=== PATIENT | female | born 1985 | race Asian ===

== ENCOUNTER 2016-10-19 08:17 | Inpatient (IN) | payer OTHER ==
--- NOTE | 2016-10-19 09:01 | OBPROG ---
OBG Progress Note Assessment/Plan: Assessment: cat1 fhr pain well managed irregular contractions intermittant monitoring low risk iv access labs assessement cephalic came in because worried about the bleeding would like to labor here Plan:expectant management of labor 10/19/16 08:58 Subjective: + bloody show. States rom at 0600 several episodes of leaking. Deferred amnisure bleeding noted. Coping well. - SVE Dilation (cm): 3 Effacement (%): 90 Station: 0 FHR Pattern Variability: Moderate FHR Category: 1 Membranes: SROM Amniotic Fluid Color: Blood Tinged - Physical Exam General Appearance: WD/WN, alert, no apparent distress Estimated Weight: [id number] EENT: PERRL/EOMI, normal ENT inspection Neck: non-tender, full range of motion Respiratory: chest non-tender, lungs clear, normal breath sounds Cardiac/Chest: regular rate, rhythm Abdomen: normal bowel sounds, flatus (positive passing) Extremities: normal range of motion, Sofia's sign (ngative bilaterally) DTR- Lower Extremities: Knee (R): 1+, Knee (L): 1+ (no clonus) Back: Normal inspection Skin: normal color, warm/dry Neuro/Psych: no motor/sensory deficits, alert, normal mood/affect, oriented x 3 ICD10 Worksheet Patient Problems: Problems Problem Status Onset Premature rupture of membranes (PROM), onset of labor within 24 hours, antepartum, full term Acute term labor rom Acute - ICD10 Problem Qualifiers (2) Premature rupture of membranes (PROM), onset of labor within 24 hours, antepartum, full term
[2016-10-19] MEDS ORDERED: IBUPROFEN 600 MG TAB PO PRN (09:03)
[2016-10-19] MEDS ORDERED: OLIVE OIL 118 ML BTL MISC PRN (09:03)
[2016-10-19] MEDS ORDERED: TERBUTALINE SULFATE 1 MG/ML VIAL IV PRN (09:03)
[2016-10-19] MEDS ORDERED: OXYTOCIN/RINGERS LACTATE 1,000 ML IV PRN (09:03)
[2016-10-19] MEDS ORDERED: EPSOM SALT 454 GM TP PRN (09:03)
[2016-10-19] MEDS ORDERED: LR 1,000 ML IV PRN (09:03)
[2016-10-19] MEDS ORDERED: LIDOCAINE 1% 30 ML SDV SC PRN (09:03)
[2016-10-19] MEDS ORDERED: LIDOCAINE 1% 30 ML SDV ONE (10:03)
[2016-10-19] MEDS ORDERED: AMMONIA AROMATIC 1 EACH AMP IH ONE (10:03)
[2016-10-19] MEDS ORDERED: OLIVE OIL 118 ML BTL ONE (10:03)
[2016-10-19] MEDS ORDERED: OXYTOCIN 10 UNIT/ML VIAL ONE (10:04)
[2016-10-19] MEDS ORDERED: MISOPROSTOL 200 MCG TAB ONE (10:04)
[2016-10-19] MEDS ORDERED: TERBUTALINE SULFATE 1 MG/ML VIAL ONE (10:04)
[2016-10-19 10:06] LABS: % IMMATURE GRANULYOCYTES 1.9 % (0.0-1.1); ABSOLUTE IMMATURE GRANULOCYTES 0.15 10^3/uL (0.00-0.10); ADD DIFF? NO; ADD MORPH? NO; ADD SCAN? NO; ATYPICAL LYMPHOCYTE FLAG 0 (0-99); FRAGMENT RBC FLAG 0 (0-99); HEMATOCRIT 38.6 % (38.0-47.0); HEMOGLOBIN 13.3 g/dL (12.6-16.3); LEFT SHIFT FLG 20 (0-99); LIPEMIA HEMOLYSIS FLAG 90 (0-99); MEAN CELL HEMOGLOBIN 31.9 pg (27.9-34.1); MEAN CELL HEMOGLOBIN CONCENTR. 34.5 g/dL (32.4-36.7); MEAN CELL VOLUME 92.6 fL (81.5-99.8); MEAN PLATELET VOLUME 13.1 fL (8.7-11.7); PLATELET CLUMPS FLAG 0 (0-99); PLATELET COUNT 114 10^3/uL (150-400); RED BLOOD CELL COUNT 4.17 10^6/uL (4.18-5.33)
--- NOTE | 2016-10-19 12:29 | OBPROG ---
OBG Progress Note Assessment/Plan: Assessment: intermittant monitoring 135 pain well managed irregular contractions 3/90/0 cephalic no reevaluation of cervix will wait for pain relief or greater pain to reduce the chance of infection 6h since rupture Plan:expectant management of labor 10/19/16 08:58 10/19/16 12:27 Subjective: Doing well. Pain from 3.5 to 5 breathing through the contractions. Asking about pain medications. would like to get into the tub to assist with pain relief Objective: 10/19/16 10:00 Patient ABO/Rh B POSITIVE 10/19/16 10:00 Current Contraction Pattern: Irregular FHR (bpm): 135 FHR Pattern Variability: Moderate Membranes: SROM Amniotic Fluid Color: Blood Tinged - Physical Exam Estimated Weight: [id number] ICD10 Worksheet Patient Problems: Problems Problem Status Onset Premature rupture of membranes (PROM), onset of labor within 24 hours, antepartum, full term Acute term labor rom Acute - ICD10 Problem Qualifiers (2) Premature rupture of membranes (PROM), onset of labor within 24 hours, antepartum, full term
[2016-10-19] MEDS ORDERED: fentaNYL 2MCG/ML/BUP 0.1% RTU 100 ML BAG EP ONE (14:38)
[2016-10-19] MEDS ORDERED: PHENYLEPHRINE HCL 100 MCG/ML SYR ONE (14:38)
[2016-10-19] MEDS ORDERED: BUPIVACAINE 0.25% 30 ML SDV ONE (14:38)
[2016-10-19] MEDS ORDERED: fentaNYL 100 MCG/2 ML INJ ONE ×2 (14:39→14:48)
[2016-10-19] MEDS ORDERED: PHENYLEPHRINE HCL 100 MCG/ML SYR IVP PRN (16:38)
[2016-10-19] MEDS ORDERED: ONDANSETRON 4 MG/2 ML VIAL IVP PRN (16:38)
--- NOTE | 2016-10-19 16:40 | POSTANESTH ---
Post Anesthetic Evaluation Cardiovascular Status: Normal, Stable Respiratory Status: Normal, Stable, Similar to Pre-op Cond. Level of Consciousness/Mental Status: Can Participate in Eval, Alert and Oriented (Tolerated CSE well, stable, comfortable.) Pain Control: Adequate, Prn Tx Ordered Nausea/Vomiting Control: Adequate, Prn Tx Ordered Complications Possibly Related to Anesthesia: None Noted
--- NOTE | 2016-10-19 16:43 | PREANESOB ---
Obstetric Pre-Anesthesia Info - General Info Proposed Procedure: Labor and delivery. : 1 Para: 0 WBD: 38 - Info Status: Full Term Monitors: External FHR Baseline (bpm): 135 FHR Pattern: Reassuring - Labor Status Cervical Dilation per last OB SVE: 3 Station per last OB SVE: 0 Amniotic Fluid Color: Blood Tinged Indications for Labor Analgesia: Pain Control Labor Epidural: Proposed Anesthesia ROS: Negative. Allergies/Adverse Reactions: Allergy/AdvReac Type Severity Reaction Status Date / Time No Known Allergies Allergy Unverified 10/19/16 09:02 Visit Medications: Generic Name Dose Route Start Last Admin Trade Name Freq PRN Reason Stop Dose Admin Diphenhydramine HCl 25 - 50 mg 10/19/16 16:38 Benadryl Injection IVP 04/17/17 16:37 Q6HRS PRN Itching Lactated Ringer's 1,000 mls @ 0 mls/hr 10/19/16 09:03 Lr IV 04/17/17 09:02 PRN PRN SEE PROTOCOL CONDITIONS Protocol Per Protocol Oxytocin/Lactated Ringer's 1,000 mls @ 150 mls/hr 10/19/16 09:03 Pitocin 20 Units/Lr (Premix) IV PRN PRN Post- bleeding Fentanyl/Bupivacaine HCl 100 mls @ 0 mls/hr 10/19/16 17:00 Fentanyl/Bupivacaine/Ns 2 Mcg/Ml 0.1% (Premix EP 10/29/16 16:59 CONT BEVERLEY Protocol As Directed Lactated Ringer's 500 mls @ 0 mls/hr 10/19/16 17:00 Lr IV 04/17/17 16:59 CONT BEVERLEY As Directed Ibuprofen 600 mg 10/19/16 09:03 Motrin PO 04/17/17 09:02 Q6HRS PRN post , inflammation Lidocaine HCl 30 ml 10/19/16 09:03 Lidocaine Hcl 1% SC 04/17/17 09:02 ONCE PRN Episiotomy Magnesium Sulfate 454 gm 10/19/16 09:03 Epsom Salt TP 04/17/17 09:02 PRN PRN perineal discomfort [place] Oil 118 ml 10/19/16 09:03 Sweet Oil MISC 04/17/17 09:02 ONCE PRN preneal massage Ondansetron HCl 4 mg 10/19/16 16:38 Zofran IVP 04/17/17 16:37 Q4HRS PRN Nausea/Vomiting, Can't Take PO Phenylephrine HCl 100 mcg 10/19/16 16:38 Naren-Synephrine IVP 04/17/17 16:37 .Q2M PRN Hypotension Terbutaline Sulfate 0.25 mg 10/19/16 09:03 Brethine IV 04/17/17 09:02 ONCE PRN Tachysystole Discontinued Medications Generic Name Dose Route Start Last Admin Trade Name Fregabi PRN Reason Stop Dose Admin Ammonia (Aromatic Spirit) Confirm 10/19/16 10:03 Ammonia Aromatic Administered 10/19/16 10:04 Dose 1 each IH .STK-MED ONE Bupivacaine HCl Confirm 10/19/16 14:38 Sensorcaine 0.25% Sdv Administered 10/19/16 14:39 Dose 30 ml .ROUTE .STK-MED ONE Ephedrine Sulfate Confirm 10/19/16 10:04 Ephedrine Sulfate Administered 10/19/16 10:05 Dose 50 mg .ROUTE .STK-MED ONE Fentanyl Confirm 10/19/16 14:39 Sublimaze Administered 10/19/16 14:40 Dose 100 mcg .ROUTE .STK-MED ONE Fentanyl Confirm 10/19/16 14:48 Sublimaze Administered 10/19/16 14:49 Dose 100 mcg .ROUTE .STK-MED ONE Fentanyl/Bupivacaine HCl Confirm 10/19/16 14:38 Fentanyl/Bupivacaine/Ns 2 Mcg/Ml 0.1% (Premix Administered 10/19/16 14:39 Dose 100 ml EP .STK-MED ONE Lidocaine HCl Confirm 10/19/16 10:03 Lidocaine Hcl 1% Administered 10/19/16 10:04 Dose 30 ml .ROUTE .STK-MED ONE Misoprostol Confirm 10/19/16 10:04 Cytotec Administered 10/19/16 10:05 Dose 800 mcg .ROUTE .STK-MED ONE [place] Oil Confirm 10/19/16 10:03 Sweet Oil Administered 10/19/16 10:04 Dose 118 ml .ROUTE .STK-MED ONE Oxytocin Confirm 10/19/16 10:04 Pitocin Administered 10/19/16 10:05 Dose 40 unit .ROUTE .STK-MED ONE Phenylephrine HCl Confirm 10/19/16 14:38 Naren-Synephrine Administered 10/19/16 14:39 Dose 1,000 mcg .ROUTE .STK-MED ONE Terbutaline Sulfate Confirm 10/19/16 10:04 Brethine Administered 10/19/16 10:05 Dose 1 mg .ROUTE .STK-MED ONE - Anesthesia History Response to Local Anesthetics: Normal - Social History Substance Use/Abuse: Denies - Focused Exam Blood Pressure: 97/54 Heart Rate: 75 Height/Weight (Nursing): Height 165.1 cm Weight 63.049 kg Physical Exam: Within normal limits. ASA Status: II Labs: 10/19/16 10:00 Patient ABO/Rh B POSITIVE 10/19/16 10:00 - Plan Anesthetic Plan: CSE Consent Signed and on Chart: Yes Patient/Guardian Understands and Agrees to Plan: Yes
--- NOTE | 2016-10-19 16:53 | OBPROG ---
OBG Progress Note Assessment/Plan: Assessment: cat1 fhr pain well managed with epidural regular contractions/ q 2-3 minutes 7/100/-1 cephalic continued leaking/ + bloody show Plan:expectant management of labor 10/19/16 08:58 10/19/16 12:27 10/19/16 16:50 Subjective: Feeling better after the epidural placement Objective: 10/19/16 10:00 Patient ABO/Rh B POSITIVE 10/19/16 10:00 Temp Pulse Resp BP Pulse Ox 75 97/54 L 10/19/16 16:44 10/19/16 16:44 - SVE Dilation (cm): 7 Effacement (%): 100 Station: -1 Current Contraction Pattern: Regular FHR Pattern Variability: Moderate FHR Category: 1 Membranes: SROM Amniotic Fluid Color: Blood Tinged - Physical Exam Estimated Weight: [id number] ICD10 Worksheet Patient Problems: Problems Problem Status Onset Premature rupture of membranes (PROM), onset of labor within 24 hours, antepartum, full term Acute term labor rom Acute - ICD10 Problem Qualifiers (2) Premature rupture of membranes (PROM), onset of labor within 24 hours, antepartum, full term
[2016-10-19] MEDS ORDERED: LR 500 ML IV SCH (17:00)
[2016-10-19] MEDS ORDERED: fentaNYL 2MCG/ML/BUP 0.1% RTU 100 ML EP SCH (17:00)
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
--- NOTE | 2016-10-19 18:32 | OBPROG ---
OBG Progress Note Assessment/Plan: Assessment: cat2 fhr pain on right side bolus of epidural to assist with pain relief pain level 1-2 regular contractions/ q 2-3 minutes 9/100/+1 cephalic continued leaking/ + bloody show increased amount fhr cat 2 feel reassured Plan:expectant management of labor 10/19/16 08:58 10/19/16 12:27 10/19/16 16:50 10/19/16 18:31 Objective: 10/19/16 10:00 Patient ABO/Rh B POSITIVE 10/19/16 10:00 Temp Pulse Resp BP Pulse Ox 75 97/54 L 10/19/16 16:44 10/19/16 16:44 - SVE Dilation (cm): 9 Effacement (%): 100 Station: +1 Current Contraction Pattern: Regular FHR (bpm): 125 FHR Pattern Variability: Moderate FHR Category: 2 Amniotic Fluid Color: Bloody - Physical Exam Estimated Weight: [id number] ICD10 Worksheet Patient Problems: Problems Problem Status Onset Premature rupture of membranes (PROM), onset of labor within 24 hours, antepartum, full term Acute term labor rom Acute - ICD10 Problem Qualifiers (2) Premature rupture of membranes (PROM), onset of labor within 24 hours, antepartum, full term
--- NOTE | 2016-10-19 20:06 | OBPROG ---
OBG Progress Note Assessment/Plan: Assessment: cat2 fhr to left side after exam with the peanut ball pain level 1-2 feeling pressure regular contractions/ q 2-3 minutes 10/100/+1 cephalic continued leaking/ + bloody show increased amount fhr cat 2 feel reassured greater amounts of bloody show labor down x 1 hour to assist with descent of head Plan:expectant management of labor 10/19/16 08:58 10/19/16 12:27 10/19/16 16:50 10/19/16 18:31 10/19/16 19:53 Objective: 10/19/16 10:00 Patient ABO/Rh B POSITIVE 10/19/16 10:00 Temp Pulse Resp BP Pulse Ox 75 97/54 L 10/19/16 16:44 10/19/16 16:44 - SVE Dilation (cm): 10 Effacement (%): 100 Station: 0 Current Contraction Pattern: Regular FHR (bpm): 135 FHR Pattern Variability: Moderate FHR Category: 1 Membranes: SROM Amniotic Fluid Color: Bloody - Physical Exam Estimated Weight: [id number] ICD10 Worksheet Patient Problems: Problems Problem Status Onset Premature rupture of membranes (PROM), onset of labor within 24 hours, antepartum, full term Acute term labor rom Acute - ICD10 Problem Qualifiers (2) Premature rupture of membranes (PROM), onset of labor within 24 hours, antepartum, full term
[2016-10-19] MEDS ORDERED: OXYTOCIN/RINGERS LACTATE 500 ML IV SCH (21:30)
--- NOTE | 2016-10-19 21:33 | OBPROG ---
OBG Progress Note Assessment/Plan: Assessment: cat2 fhr to left side after exam with the peanut ball pushing x 1h slow descent of head pitocin per protocl to assist with strength of contractions regular contractions/ q 2-5 minutes short in length 10/100/+1 cephalic continued leaking/ + bloody show increased amount fhr cat 2 feel reassured greater amounts of bloody show labor down again x 1/2 hour Plan:pitocin per protocol try again with pushing in 30-60 minutes 10/19/16 08:58 10/19/16 12:27 10/19/16 16:50 10/19/16 18:31 10/19/16 19:53 10/19/16 21:31 Objective: 10/19/16 10:00 Patient ABO/Rh B POSITIVE 10/19/16 10:00 Temp Pulse Resp BP Pulse Ox 75 97/54 L 10/19/16 16:44 10/19/16 16:44 - SVE Dilation (cm): 10 Effacement (%): 100 Station: +1 Current Contraction Pattern: Regular FHR (bpm): 150 FHR Pattern Variability: Moderate FHR Category: 2 Membranes: SROM Amniotic Fluid Color: Bloody - Physical Exam Estimated Weight: 1336-8150 ICD10 Worksheet Patient Problems: Problems Problem Status Onset Premature rupture of membranes (PROM), onset of labor within 24 hours, antepartum, full term Acute term labor rom Acute - ICD10 Problem Qualifiers (2) Premature rupture of membranes (PROM), onset of labor within 24 hours, antepartum, full term
[2016-10-19] MEDS ORDERED: SILVER NITRATE APPLICATOR 1 APPL TP ONE (23:22)
[2016-10-19] MEDS ORDERED: HYDROCODONE/APAP 5/325 TAB PO PRN (23:35)
[2016-10-19] MEDS ORDERED: SIMETHICONE 80 MG TAB CHEW PO PRN (23:35)
[2016-10-19] MEDS ORDERED: HYDROCORTISONE 0.5% CREAM TP PRN (23:35)
--- NOTE | 2016-10-19 23:40 | OBPROC ---
- Labor and Delivery Onset of Contractions Date: 10/19/16 Onset of Contractions Time: 09:22 Onset of Contractions Type: Augmented Rupture of Membranes Date: 10/19/16 Rupture of Membranes Time: 05:40 Rupture of Membranes Type: Spontaneous Amniotic Fluid Color: Blood Tinged Dilation Complete Time: 20:30 Delivery Type: Spontaneous Placenta Delivery Date: 10/19/16 Placenta Delivery Time: 23:05 Episiotomy/Laceration: Other (Specify) (b/l vaginal lacs) Repair: 3-0 EBL: 300 cc Complications: None - Medications Labor Augmentation/Induction Meds Used: Pitocin Labor Augmentation/Induction Indication: Other (Specify) (PROM) Anesthesia: Epidural - [place] Info A Delivery Date: 10/19/16 Delivery Time: 22:59 Sex of : Female Score (1 Min): 8 Score (5 Min): 9
[2016-10-20] MEDS ORDERED: SILVER NITRATE APPLICATOR 1 APPL TP ONE (01:00)
[2016-10-20 01:43] VITALS: RESP 16
[2016-10-20 06:10] LABS: HEMATOCRIT 32.7 % (38.0-47.0); HEMOGLOBIN 11.5 g/dL (12.6-16.3); MEAN CELL HEMOGLOBIN CONCENTR. 35.2 g/dL (32.4-36.7); MEAN CELL VOLUME 93.7 fL (81.5-99.8); RED BLOOD CELL COUNT 3.49 10^6/uL (4.18-5.33); RED CELL DISTRIBUTION WIDTH 12.1 % (11.5-15.2)
[2016-10-20] MEDS: IBUPROFEN 600 MG TAB PO PRN ×3 (08:30→20:12)
[2016-10-20] MEDS: DOCUSATE SODIUM 100 MG CAP PO PRN (08:31)
--- NOTE | 2016-10-20 13:32 | OBPROG ---
OBG Progress Note Assessment/Plan: Assessment: 31 y/o PPD #1 s/p doing well. Plan: Bifera QD secondary to anemia, sitz baths. support and routine PPC. 10/20/16 13:31 Subjective: Pt is doing well this am. She has min perineal swelling and tenderness controlled by Ibuprofen. Min lochia, ambulating and voiding without difficulty. She is working on breast feeding and baby is doing well. Objective: 10/20/16 05:25 Patient ABO/Rh B POSITIVE 10/19/16 10:00 Temp Pulse Resp BP Pulse Ox 36.7 C 73 16 106/65 95 10/20/16 08:30 10/20/16 08:30 10/20/16 08:30 10/20/16 08:30 10/20/16 01:30 Uterine Position/Fundal Height: Umbilicus -2 Uterine Tone: Firm - Physical Exam General Appearance: WD/WN, alert, no apparent distress Estimated Weight: 6252-2800 Neck: non-tender, full range of motion, supple Respiratory: chest non-tender, lungs clear, normal breath sounds Cardiac/Chest: regular rate, rhythm Abdomen: normal bowel sounds Extremities: swelling (no), Sofia's sign (neg) ICD10 Worksheet Patient Problems: Problems Problem Status Onset Premature rupture of membranes (PROM), onset of labor within 24 hours, antepartum, full term Acute term labor rom Acute
[2016-10-20] MEDS: IRON POLYSAC/IRON HEME 28 MG TAB PO SCH (14:35)
[2016-10-20 21:16] VITALS: O2SAT 97
[2016-10-20] MEDS ORDERED: SUCROSE 1 EA UDL ONE (23:53)
[2016-10-21] MEDS: IBUPROFEN 600 MG TAB PO PRN ×2 (03:36→12:41)
--- NOTE | 2016-10-21 09:40 | SOAPPROG ---
SOAP Progress Note Assessment/Plan: Assessment: [id number] ppd# 2 s/p uncomplicated post course breast feeding nipple pain - requesting apno Plan: rx for apno discharge instructions 10/21/16 09:38 Subjective: patient is doing well. pain is well controlled. normal lochia. breast feeding is going well. denies headache and changes in vision. ambulating. voiding without difficulty. Objective: Vital Signs Temp Pulse Resp BP Pulse Ox 36.3 C 81 16 94/63 L 97 10/20/16 20:15 10/20/16 20:15 10/20/16 20:15 10/20/16 20:15 10/20/16 20:15 Laboratory Results 10/20/16 05:25 10/20/16 10/21/16 10/22/16 05:59 05:59 05:59 Intake Total 3200 Output Total 300 Balance 2900 Physical Exam - Physical Exam General Appearance: WD/WN, alert, no apparent distress Respiratory: chest non-tender, lungs clear, normal breath sounds Cardiac/Chest: normal peripheral pulses, regular rate, rhythm Abdomen: normal bowel sounds, non-tender, soft, other (fundus firm and non tender) Skin: normal color, warm/dry Extremities: normal range of motion, non-tender, normal inspection, normal capillary refill Neuro/Psych: no motor/sensory deficits, alert, normal mood/affect, oriented x 3 ICD10 Worksheet Patient Problems: Problems Problem Status Onset Premature rupture of membranes (PROM), onset of labor within 24 hours, antepartum, full term Acute term labor rom Acute
[2016-10-21] MEDS: DOCUSATE SODIUM 100 MG CAP PO PRN (13:19)
[2016-10-21] MEDS: IRON POLYSAC/IRON HEME 28 MG TAB PO SCH (13:19)
[2016-10-21 14:46] VITALS: BP 98/65; PULSE 80; TEMP 97.5
== END 2016-10-21 13:30 | disposition home or self-care (01) | DRG 775 ==
LOC: FLD 08:17 → FOB 10-20 01:01
PROVIDERS: ADMIT Advanced Practice Midwife; ATTEND Obstetrics & Gynecology
PROC: 0UQG7ZZ Repair Vagina, Via Natural or Artificial Opening (ICD-10-PCS; principal; 2016-10-19)
PROC: 10E0XZZ Delivery of Products of Conception, External Approach (ICD-10-PCS; principal; 2016-10-19)
DX: O71.4 Obstetric high vaginal laceration alone (principal); O77.0 Labor and delivery complicated by meconium in amniotic fluid; Z3A.38 38 weeks gestation of pregnancy; Z37.0 Single live birth
CPT/HCPCS: J2370; J2590; J3010; J3105